=== PATIENT | female | born 2005 | race Caucasian/White ===

== ENCOUNTER 2023-02-13 18:19 | Observation (INO) | payer OTHER, MEDICAID ==
[~2023-02-13] VITALS: Ht 167.6 cm; Wt 57.8 kg
[2023-02-13 18:39] LABS: BASOPHILS ABSOLUTE AUTO 0.06 K/mm3 (0.00-0.23); BASOPHILS PERCENT AUTO 1 % (0-2); EOSINOPHILS ABSOLUTE AUTO 0.07 K/mm3 (0.00-0.68); EOSINOPHILS PERCENT AUTO 1 % (0-6); Hematocrit 35.8 % (33.0-51.0); Hemoglobin 12.5 g/dL (11.5-16.0); IMMATURE GRAN ABSOLUTE AUTO 0.44 K/mm3 (0.00-0.10); IMMATURE GRAN PERCENT AUTO 4 % (0-1); LYMPHOCYTES ABSOLUTE AUTO 3.78 K/mm3 (0.84-5.20); LYMPHOCYTES PERCENT AUTO 33 % (21-46); MONOCYTES ABSOLUTE AUTO 0.65 K/mm3 (0.16-1.47); MONOCYTES PERCENT AUTO 6 % (4-13); Mean Corpuscular HGB 28.4 pg (26.0-34.0); Mean Corpuscular HGB Conc 34.9 g/dL (31.5-36.5); Mean Corpuscular Volume 81 fL (80-100); Mean Platelet Volume 9.9 fL (9.1-12.4); NEUTROPHILS ABSOLUTE AUTO 6.54 K/mm3 (1.96-9.15); NEUTROPHILS PERCENT AUTO 57 % (41-73); Platelet Count 309 K/mm3 (150-400); RDW Standard Deviation 38.5 fL (35.1-46.3); White Blood Cell Count 11.54 K/mm3 (4.00-11.30)
[2023-02-13 18:52] LABS: International Normalized Ratio 1.04; Prothrombin Time Results 10.9 Sec (9.7-11.5)
[2023-02-13 18:59] LABS: Ethanol (Alcohol), Blood, Med <3 mg/dL
[2023-02-13 19:00] LABS: Alanine Aminotransfer (ALT/SGP 61 U/L (12-78); Alk Phos 113 U/L (45-116); Anion Gap 5 mmol/L (6-16); Aspartate Aminotrans (AST/SGOT 73 U/L (12-37); Bilirubin, Total 0.4 mg/dL (0.1-1.0); Blood Urea Nitrogen 17 mg/dL (8-21); Bun/Creatinine Ratio 28.3 (12.0-20.0); CO2, Blood 23 mmol/L (21-32); Calcium, Blood 9.4 mg/dL (8.5-10.1); Chloride, Blood 108 mmol/L (98-108); Globulin, Blood 3.9 g/dL (2.2-4.0); Glomerular Filtration Rate 133 (60-); Glucose, Blood 126 mg/dL (70-99); Potassium, Blood 4.1 mmol/L (3.5-5.5); Sodium, Blood 136 mmol/L (136-145); Total Protein, Blood 7.9 g/dL (6.4-8.2)
[2023-02-13 23:26] VITALS: BP 110/67
[2023-02-13] MEDS ORDERED: SUMA25 PO (23:37)
[2023-02-14 05:12] VITALS: BP 99/59
[2023-02-14 14:58] VITALS: BP 108/68
[2023-02-14 19:30] VITALS: BP 111/66
[2023-02-15 03:15] VITALS: BP 104/55
[2023-02-15 07:57] VITALS: BP 108/62
[2023-02-15] MEDS ORDERED: Percocet 5-3251 EACH PO (10:04)
[2023-02-16] MEDS ORDERED: ONDA4ODT MM (16:03)
== END 2023-02-15 11:11 | disposition home or self-care (01) ==
LOC: ER 18:19 → SURS 18:20
PROVIDERS: Emergency Medicine; ADMIT Surgery
DX: S06.0XAA Concussion with loss of consciousness status unknown, initial encounter (principal); S22.32XA Fracture of one rib, left side, initial encounter for closed fracture; S32.512A Fracture of superior rim of left pubis, initial encounter for closed fracture; S32.19XA Other fracture of sacrum, initial encounter for closed fracture; R45.1 Restlessness and agitation; S01.02XA Laceration with foreign body of scalp, initial encounter; S81.812A Laceration without foreign body, left lower leg, initial encounter; S71.112A Laceration without foreign body, left thigh, initial encounter; S21.219A Laceration without foreign body of unspecified back wall of thorax without penetration into thoracic cavity, initial encounter; V49.40XA Driver injured in collision with unspecified motor vehicles in traffic accident, initial encounter
CPT/HCPCS: 70450; 71045; 72125; 72170; 73030; 73590; 74177; 80053; 83690; 84703; 85025; 85610; 92523; 93005; 93010; 96374-59; 96375; 96376; 97112; 97161; 99285-25; A9270; G0480; J1170; J1650; J2060; J2405; J2765; J3010; Q9967

== ENCOUNTER 2023-02-16 12:55 | Emergency (ER) | payer OTHER ==
[~2023-02-16] VITALS: Ht 170.2 cm; Wt 59.0 kg
[~2023-02-16 12:55] MED LIST: Percocet 5-3251 EACH PO; SUMA25 PO
[2023-02-16 14:08] LABS: Albumin, Blood 4.6 g/dL (3.4-5.0); Albumin/Globulin Ratio 0.9 (0.8-1.8); Bilirubin, Total 0.9 mg/dL (0.1-1.0); Bun/Creatinine Ratio 33.3 (12.0-20.0); Calcium, Blood 10.2 mg/dL (8.5-10.1); Creatinine, Blood 0.63 mg/dL (0.40-1.00); Magnesium, Blood 2.1 mg/dL (1.6-2.4); Total Protein, Blood 9.6 g/dL (6.4-8.2)
[2023-02-16] MEDS ORDERED: ONDA4ODT MM (16:03)
[2023-02-16 16:25] VITALS: BP 108/64
== END 2023-02-16 16:26 | disposition home or self-care (01) ==
LOC: ER 12:55
PROVIDERS: Physician Assistant
DX: R11.2 Nausea with vomiting, unspecified (principal); Z88.8 Allergy status to other drugs, medicaments and biological substances; Z79.899 Other long term (current) drug therapy
CPT/HCPCS: 36415; 80053; 83690; 83735; 99283; A9270